=== PATIENT | female | born 2000 | race African-American/Black ===

== ENCOUNTER 2024-04-13 00:17 | Emergency (ER) | payer MEDICAID ==
[~2024-04-13] VITALS: Ht 162.6 cm; Wt 70.0 kg
[2024-04-13] MEDS ORDERED: MAGNESIUM/ALUMINUM HYDROXIDE/SIMETHICONE 30ML UDC PO STA (00:19)
[2024-04-13 00:22] VITALS: O2SAT 99
[2024-04-13] MEDS ORDERED: METOCLOPRAMIDE HCL 10MG/2ML VIAL IV ONE (00:30)
[2024-04-13] MEDS ORDERED: ACETAMINOPHEN 325MG TABLET PO ONE (00:30)
[2024-04-13 00:47] LABS: BASOPHILS % 0.4 % (0.0-2.0); EOSINOPHILS % 1.5 % (0.0-5.0); HEMATOCRIT. 40.1 % (36.0-48.0); HEMOGLOBIN. 13.2 g/dL (12.0-16.0); LYMPHOCYTES % 25.2 % (20.0-50.0); MEAN CORPUSCULAR HEMOGLOBIN 27.2 pg (28.0-32.0); MEAN CORPUSCULAR HGB CONC 32.9 g/dL (31.0-37.0); MEAN CORPUSCULAR VOLUME 82.8 fL (81.0-99.0); MEAN PLATELET VOLUME 9.2 fl (7.4-10.4); MONOCYTES % 7.9 % (2.0-8.0); PLATELET 230 x1000/uL (130-400); RED BLOOD CELL COUNT 4.84 mill/uL (4.2-5.4); RED CELL DISTRIBUTION WIDTH 12.8 % (11.6-14.6); WHITE BLOOD COUNT 7.9 x1000/uL (4.5-11.0)
[2024-04-13 00:54] LABS: CHLORIDE 102 mEq/L (98-107); POTASSIUM 3.8 mEq/L (3.5-5.1); SODIUM 133 mEq/L (136-145)
[2024-04-13 00:55] LABS: CALCIUM 9.9 mg/dL (8.7-10.4); CARBON DIOXIDE 19 mEq/L (21-32)
[2024-04-13 01:00] LABS: CREATININE 0.7 mg/dL (0.6-1.0); GLUCOSE 80 mg/dL (70-105)
[2024-04-13 01:01] LABS: UREA NITROGEN BLOOD 8 mg/dL (9-23)
[2024-04-13 01:02] LABS: ALANINE AMINOTRANSFERASE 34 IU/L (10-49); ASPARTATE AMINOTRANSFERASE 28 IU/L (<34)
[2024-04-13 01:03] LABS: BILIRUBIN DIRECT 0.3 mg/dL (<=3.0); BILIRUBIN TOTAL 0.7 mg/dL (0.1-1.0)
[2024-04-13 01:56] LABS: B-HCG QUANTITATIVE 61149 mIU/mL (<3)
[2024-04-13] MEDS: METOCLOPRAMIDE HCL 10MG/2ML VIAL IV NR (02:15)
[2024-04-13 02:18] VITALS: TEMP 98.4
[2024-04-13] MEDS: ACETAMINOPHEN 325MG TABLET PO NR (02:18)
[2024-04-13] MEDS: MAGNESIUM/ALUMINUM HYDROXIDE/SIMETHICONE 30ML UDC PO NR (02:19)
[2024-04-13] MEDS: SODIUM CHLORIDE 0.9% 1,000 ML IV ONE (02:19)
[2024-04-13] MEDS ORDERED: MAG355OR21 MT (03:02)
[2024-04-13] MEDS ORDERED: METO-293 MT (03:02)
[2024-04-13 03:10] VITALS: BP 111/55; PULSE 64; RESP 14
== END 2024-04-13 03:10 | disposition home or self-care (01) ==
LOC: ER 00:17
DX: O26.91 Pregnancy related conditions, unspecified, first trimester (principal); R10.9 Unspecified abdominal pain; Z3A.08 8 weeks gestation of pregnancy
CPT/HCPCS: 80076; 80048; 84702; 83690; 85025; 36415; 76700; 76801; 76817; 96361; 96374; 99285; J2765; J7030; Z7610

== ENCOUNTER 2025-08-06 17:33 | Emergency (ER) | payer OTHER ==
[~2025-08-06] VITALS: Ht 162.6 cm; Wt 86.0 kg
[~2025-08-06 17:33] MED LIST: MAG355OR21 MT; METO-293 MT
[2025-08-06 17:43] VITALS: O2SAT 99
[2025-08-06] MEDS: IBUPROFEN 600MG TABLET PO ONE (20:50)
[2025-08-06] MEDS ORDERED: NEOM1PAC6 TP (21:57)
[2025-08-06] MEDS ORDERED: IBUP-2028 MT (21:57)
[2025-08-06 22:11] VITALS: BP 124/72; PULSE 53; RESP 18; O2SAT 100
== END 2025-08-06 22:12 | disposition home or self-care (01) ==
LOC: ER 17:33
DX: L03.012 Cellulitis of left finger (principal); J45.909 Unspecified asthma, uncomplicated; Z90.49 Acquired absence of other specified parts of digestive tract
CPT/HCPCS: 10060; 99283; Z7610 ×2